=== PATIENT | female | born 1985 | race Two or more races ===

== ENCOUNTER 2024-06-02 19:09 | Emergency (ER) | payer OTHER ==
[~2024-06-02] VITALS: Ht 165.1 cm; Wt 70.0 kg
[2024-06-02 19:22] VITALS: BP 176/99; PULSE 90; RESP 17; TEMP 98.1; O2SAT 99
[2024-06-02 21:05] LABS: GLUCOMETER DEV NAME(LOC) ERT.6; GLUCOSE,POINT OF CARE 122 MG/DL (70-110)
== END 2024-06-02 22:59 | disposition left against medical advice (07) ==
LOC: EMS 19:09
DX: F41.9 Anxiety disorder, unspecified (principal); Z53.21 Procedure and treatment not carried out due to patient leaving prior to being seen by health care provider
CPT/HCPCS: 82962